=== PATIENT | female | born 1940 | race Hispanic/Latino ===

== ENCOUNTER 2021-10-21 18:53 | Inpatient (IN) | payer MEDICARE, MEDICAID ==
[2021-10-21 19:36] LABS: #Eosinphils 0.2 10x3/uL (0.0-0.5); #Monocytes 0.7 10x3/uL (0.0-1.1); #Neutrophils 3.5 10x3/uL (1.5-8.4); %Basophils 0.7 % (0.0-2.0); %Eosinophils 2.5 % (0.0-6.0); %Monocytes 11.3 % (0.0-10.0); %Neutrophils 57.9 % (40.0-75.0); Hemoglobin 4.9 g/dL (12.0-15.5); Mean Corpuscular HGB CONC 30.4 g/dL (32.0-36.0); Mean Corpuscular Hemoglobin 27.1 pg (27.0-33.0); Mean Platelet Volume 9.8 fl (7.4-10.4); Platelet Count 303 10x3/uL (150-450); RBC Distribution Width 14.2 % (11.5-14.5); Red Blood Cell (RBC) Count 1.81 10x6/uL (3.90-5.03); White Blood Cell (WBC) Count 6.1 10x3/uL (3.5-10.5)
[2021-10-21 19:50] LABS: ALT (SGPT) Less than 6 U/L (8-55); AST (SGOT) 7 U/L (5-34); Albumin 3.1 g/dL (3.4-4.8); Alkaline Phosphatase 117 U/L (40-110); Anion Gap 14 mmol/L (10-20); BUN (Urea Nitrogen) 21 mg/dL (9.8-20.1); Bilirubin, Total 0.2 mg/dL (0.2-1.2); Calc. Creatinine Clearance 0 mL/min (70-130); Calcium 7.9 mg/dL (7.8-10.44); Carbon Dioxide 25 mmol/L (23-31); Chloride 106 mmol/L (98-107); Globulin 2.8 g/dL (2.4-3.5); Glucose 146 mg/dL (83-110); Potassium 4.6 mmol/L (3.5-5.1); Protein, Total 5.9 g/dL (5.8-8.1); Sodium 140 mmol/L (136-145)
[2021-10-21] MEDS ORDERED: Fentanyl 100 MCG/2 ML VIAL ONE (20:05)
[2021-10-21 21:37] LABS: Bilirubin Neg (Negative); Blood, Urine 250 (Negative); Clarity Clear (Clear); Glucose, Urine (Dipstick) Normal (Negative); Ketone, Urine Negative (Negative); Leukocyte Negative (Negative); Nitrite Negative (Negative); Protein, Urine (Dipstick) 15 mg/dl (Neg-Trace); Urobilinogen Normal mg/dL (Less than 2)
[2021-10-21 22:02] LABS: Bacteria/HPF Rare-Few HPF (None Seen); RBC/HPF 21-50 HPF (0-3); Squamous Epithelial 0-3 HPF (0-3); WBC/HPF 0-3 HPF (0-3)
[2021-10-21 22:15] LABS: SARS-CoV-2 NAA Rapid Test Not Detected (NotDetected)
[2021-10-21] MEDS ORDERED: Ondansetron PF 4 MG/2 ML Vial IVP PRN (23:16)
[2021-10-21] MEDS ORDERED: traMADol HCl 50 MG TAB PO PRN (23:38)
[2021-10-21] MEDS ORDERED: Pantoprazole 80 MG in Sodium Chloride 0.9% 100 ML IVPB SCH (23:45)
[2021-10-21] MEDS ORDERED: Furosemide 40 MG/4 ML VIAL SLOW IVP SCH (23:45)
[2021-10-21 23:53] LABS: INR-International Normal Ratio 1.1; PTT 41.9 sec (22.0-33.0); Prothrombin Time 11.7 sec (9.5-12.1)
[2021-10-22] MEDS ORDERED: Pantoprazole 40 MG VIAL ONE (00:01)
[2021-10-22] MEDS ORDERED: Furosemide 40 MG/4 ML VIAL ONE (00:01)
[2021-10-22] MEDS: ALPRAZolam 1 MG TAB PO PRN (02:31)
[2021-10-22] MEDS: HYDROcodone/Acetaminophen 5/325 mg Tablet PO PRN ×4 (02:31→18:09)
[2021-10-22] MEDS: Labetalol HCl 100 MG/20 ML VIAL SLOW IVP PRN ×2 (02:32→16:27)
[2021-10-22] MEDS: Sodium Chloride 0.45% 1,000 ML IV SCH (03:49)
[2021-10-22 04:47] LABS: #Eosinphils 0.1 10x3/uL (0.0-0.5); #Monocytes 0.8 10x3/uL (0.0-1.1); #Neutrophils 3.9 10x3/uL (1.5-8.4); %Basophils 0.6 % (0.0-2.0); %Eosinophils 1.4 % (0.0-6.0); %Lymphocytes 20.4 % (18.0-47.0); %Monocytes 12.2 % (0.0-10.0); Hemoglobin 7.3 g/dL (12.0-15.5); Mean Corpuscular HGB CONC 32.3 g/dL (32.0-36.0); Mean Corpuscular Hemoglobin 27.8 pg (27.0-33.0); Mean Corpuscular Volume 85.9 fl (81.6-98.3); Platelet Count 306 10x3/uL (150-450); RBC Distribution Width 14.6 % (11.5-14.5); Red Blood Cell (RBC) Count 2.63 10x6/uL (3.90-5.03); White Blood Cell (WBC) Count 6.2 10x3/uL (3.5-10.5)
[2021-10-22 05:10] LABS: PTT 35.6 sec (22.0-33.0); Prothrombin Time 11.4 sec (9.5-12.1)
[2021-10-22 05:14] LABS: Anion Gap 13 mmol/L (10-20); BUN (Urea Nitrogen) 18 mg/dL (9.8-20.1); Calc. Creatinine Clearance 0 mL/min (70-130); Calcium 8.5 mg/dL (7.8-10.44); Carbon Dioxide 26 mmol/L (23-31); Chloride 106 mmol/L (98-107); Glucose 144 mg/dL (83-110); Sodium 141 mmol/L (136-145)
[2021-10-22 05:21] VITALS: BMI 39.9
[2021-10-22] MEDS ORDERED: Levothyroxine Sodium 100 MCG TAB PO SCH (06:00)
[2021-10-22] MEDS: Budesonide 0.25 MG/2 ML NEB INH SCH ×2 (07:44→19:00)
[2021-10-22] MEDS ORDERED: Carvedilol 6.25 MG TAB PO SCH (08:00)
[2021-10-22] MEDS: Furosemide 20 MG/2 ML VIAL SLOW IVP SCH (08:20)
[2021-10-22 08:50] LABS: #Eosinphils 0.1 10x3/uL (0.0-0.5); #Monocytes 0.9 10x3/uL (0.0-1.1); #Neutrophils 3.7 10x3/uL (1.5-8.4); %Basophils 0.6 % (0.0-2.0); %Monocytes 13.5 % (0.0-10.0); %Neutrophils 57.3 % (40.0-75.0); Mean Corpuscular HGB CONC 30.8 g/dL (32.0-36.0); Mean Corpuscular Hemoglobin 26.9 pg (27.0-33.0); Mean Corpuscular Volume 87.3 fl (81.6-98.3); Mean Platelet Volume 9.8 fl (7.4-10.4); Platelet Count 295 10x3/uL (150-450); RBC Distribution Width 14.8 % (11.5-14.5); White Blood Cell (WBC) Count 6.4 10x3/uL (3.5-10.5)
[2021-10-22] MEDS ORDERED: Pantoprazole 40 MG VIAL IVP SCH (09:00)
[2021-10-22] MEDS ORDERED: Brimonidine Tartrate 0.2% Ophth Soln 5 ml Bottle R EYE SCH (09:00)
[2021-10-22] MEDS: Acetaminophen 325 MG TAB PO PRN (10:16)
[2021-10-22] MEDS: Amlodipine 10 MG TAB PO SCH (12:22)
[2021-10-22] MEDS ORDERED: Amlodipine 10 MG TAB PO SCH (13:00)
[2021-10-22] MEDS ORDERED: Ketotifen Fumarate 0.025% Ophth Soln 5 ml Bottle EA EYE PRN (13:03)
[2021-10-22 13:49] LABS: #Eosinphils 0.2 10x3/uL (0.0-0.5); #Monocytes 0.7 10x3/uL (0.0-1.1); #Neutrophils 3.2 10x3/uL (1.5-8.4); %Basophils 0.5 % (0.0-2.0); %Eosinophils 2.7 % (0.0-6.0); %Lymphocytes 24.1 % (18.0-47.0); %Monocytes 12.4 % (0.0-10.0); %Neutrophils 58.7 % (40.0-75.0); Hemoglobin 6.8 g/dL (12.0-15.5); Mean Corpuscular HGB CONC 30.5 g/dL (32.0-36.0); Mean Corpuscular Hemoglobin 26.6 pg (27.0-33.0); Mean Corpuscular Volume 87.1 fl (81.6-98.3); Mean Platelet Volume 9.9 fl (7.4-10.4); Platelet Count 290 10x3/uL (150-450); RBC Distribution Width 14.6 % (11.5-14.5); Red Blood Cell (RBC) Count 2.56 10x6/uL (3.90-5.03); White Blood Cell (WBC) Count 5.5 10x3/uL (3.5-10.5)
[2021-10-22] MEDS ORDERED: SOMA 250 MG PO SCH (15:00)
[2021-10-22] MEDS ORDERED: Cyclobenzaprine 10 MG TAB PO SCH (15:00)
[2021-10-22] MEDS: Cyclobenzaprine 10 MG TAB PO SCH ×2 (15:10→21:30)
[2021-10-22] MEDS ORDERED: GoLYTELY 4,000 ml Bottle PO SCH (17:30)
[2021-10-22] MEDS: Carvedilol 25 MG TAB PO SCH (21:28)
[2021-10-22] MEDS: AMOXicillin 250 MG CAP PO SCH (21:29)
[2021-10-22] MEDS: Latanoprost 0.005% Ophth Soln 2.5 ml Bottle R EYE SCH (21:29)
[2021-10-22 22:23] LABS: #Eosinphils 0.2 10x3/uL (0.0-0.5); #Monocytes 0.8 10x3/uL (0.0-1.1); %Basophils 0.7 % (0.0-2.0); %Eosinophils 3.9 % (0.0-6.0); %Lymphocytes 29.3 % (18.0-47.0); %Monocytes 13.7 % (0.0-10.0); %Neutrophils 51.2 % (40.0-75.0); Hemoglobin 8.4 g/dL (12.0-15.5); Mean Corpuscular HGB CONC 32.2 g/dL (32.0-36.0); Mean Corpuscular Hemoglobin 27.8 pg (27.0-33.0); Mean Corpuscular Volume 86.4 fl (81.6-98.3); Mean Platelet Volume 9.3 fl (7.4-10.4); Platelet Count 302 10x3/uL (150-450); RBC Distribution Width 14.8 % (11.5-14.5); Red Blood Cell (RBC) Count 3.02 10x6/uL (3.90-5.03); White Blood Cell (WBC) Count 5.9 10x3/uL (3.5-10.5)
[2021-10-23] MEDS: Brimonidine Tartrate 0.2% Ophth Soln 5 ml Bottle R EYE SCH ×3 (00:09→20:20)
[2021-10-23] MEDS: HYDROcodone/Acetaminophen 5/325 mg Tablet PO PRN ×4 (00:09→20:22)
[2021-10-23] MEDS: ALPRAZolam 1 MG TAB PO PRN ×2 (00:09→13:37)
[2021-10-23 04:55] LABS: #Eosinphils 0.2 10x3/uL (0.0-0.5); #Monocytes 0.6 10x3/uL (0.0-1.1); #Neutrophils 2.5 10x3/uL (1.5-8.4); %Basophils 0.4 % (0.0-2.0); %Eosinophils 3.7 % (0.0-6.0); %Lymphocytes 30.3 % (18.0-47.0); %Monocytes 12.4 % (0.0-10.0); %Neutrophils 52.2 % (40.0-75.0); Hemoglobin 7.5 g/dL (12.0-15.5); Mean Corpuscular HGB CONC 31.5 g/dL (32.0-36.0); Mean Corpuscular Hemoglobin 27.6 pg (27.0-33.0); Mean Corpuscular Volume 87.5 fl (81.6-98.3); Mean Platelet Volume 9.5 fl (7.4-10.4); Platelet Count 292 10x3/uL (150-450); RBC Distribution Width 14.7 % (11.5-14.5); Red Blood Cell (RBC) Count 2.72 10x6/uL (3.90-5.03); White Blood Cell (WBC) Count 4.8 10x3/uL (3.5-10.5)
[2021-10-23 05:09] LABS: Anion Gap 15 mmol/L (10-20); BUN (Urea Nitrogen) 12 mg/dL (9.8-20.1); Calc. Creatinine Clearance 76 mL/min (70-130); Calcium 8.3 mg/dL (7.8-10.44); Carbon Dioxide 26 mmol/L (23-31); Chloride 104 mmol/L (98-107); Glucose 110 mg/dL (83-110); Potassium 3.9 mmol/L (3.5-5.1); Sodium 141 mmol/L (136-145)
[2021-10-23] MEDS: Levothyroxine Sodium 88 MCG TAB PO SCH (05:45)
[2021-10-23] MEDS ORDERED: Budesonide 0.5 MG/2 ML NEB ONE (07:19)
[2021-10-23] MEDS: Sodium Chloride 0.45% 1,000 ML IV SCH ×2 (08:18→08:19)
[2021-10-23] MEDS: Carvedilol 25 MG TAB PO SCH ×2 (09:56→20:22)
[2021-10-23] MEDS: Cyclobenzaprine 10 MG TAB PO SCH ×3 (09:56→20:24)
[2021-10-23] MEDS: AMOXicillin 250 MG CAP PO SCH ×2 (09:56→20:22)
[2021-10-23] MEDS: Amlodipine 10 MG TAB PO SCH (09:57)
[2021-10-23] MEDS ORDERED: GoLYTELY 4,000 ml Bottle PO SCH (10:00)
[2021-10-23] MEDS: Budesonide 0.25 MG/2 ML NEB INH SCH ×2 (10:56→19:14)
[2021-10-23] MEDS: Pantoprazole 40 MG VIAL IVP SCH (11:50)
[2021-10-23] MEDS: DULoxetine 30 MG CAP PO SCH (11:50)
[2021-10-23] MEDS: Furosemide 20 MG/2 ML VIAL SLOW IVP SCH (11:50)
[2021-10-23] MEDS: Latanoprost 0.005% Ophth Soln 2.5 ml Bottle R EYE SCH (20:21)
[2021-10-23] MEDS: Labetalol HCl 100 MG/20 ML VIAL SLOW IVP PRN (20:24)
[2021-10-24] MEDS: ALPRAZolam 1 MG TAB PO PRN ×2 (01:00→17:44)
[2021-10-24] MEDS: Acetaminophen 325 MG TAB PO PRN (01:43)
[2021-10-24] MEDS: Labetalol HCl 100 MG/20 ML VIAL SLOW IVP PRN ×3 (01:47→21:52)
[2021-10-24 04:07] LABS: Hemoglobin 7.8 g/dL (12.0-15.5); Mean Corpuscular Hemoglobin 27.4 pg (27.0-33.0); Mean Corpuscular Volume 85.6 fl (81.6-98.3); Mean Platelet Volume 9.5 fl (7.4-10.4); Platelet Count 280 10x3/uL (150-450); RBC Distribution Width 14.8 % (11.5-14.5); Red Blood Cell (RBC) Count 2.85 10x6/uL (3.90-5.03); White Blood Cell (WBC) Count 3.4 10x3/uL (3.5-10.5)
[2021-10-24 04:31] LABS: Anion Gap 13 mmol/L (10-20); BUN (Urea Nitrogen) 9 mg/dL (9.8-20.1); Calc. Creatinine Clearance 89 mL/min (70-130); Calcium 8.3 mg/dL (7.8-10.44); Carbon Dioxide 27 mmol/L (23-31); Chloride 105 mmol/L (98-107); Glucose 127 mg/dL (83-110); Potassium 3.5 mmol/L (3.5-5.1); Sodium 141 mmol/L (136-145)
[2021-10-24] MEDS: Levothyroxine Sodium 88 MCG TAB PO SCH (05:45)
[2021-10-24 05:47] LABS: MDiff Complete? YES
[2021-10-24 06:06] LABS: Eosinophils 5 % (0-10); Lymphocytes 20 % (21-51); Metamyelocyte 1 % (0-0); Monocytes 15 % (0-10); Neutrophil 58 % (42-75); Reactive Lymphocytes 1 % (0-10)
[2021-10-24 06:07] LABS: RBC Morphology Normal
[2021-10-24 06:08] LABS: Platelet Morphology Comment Appears Adequate
[2021-10-24] MEDS: HYDROcodone/Acetaminophen 5/325 mg Tablet PO PRN ×3 (06:17→23:35)
[2021-10-24] MEDS ORDERED: Budesonide 0.5 MG/2 ML NEB ONE (07:21)
[2021-10-24] MEDS: Pantoprazole 40 MG VIAL IVP SCH ×2 (08:20→12:07)
[2021-10-24] MEDS: Amlodipine 10 MG TAB PO SCH (08:20)
[2021-10-24] MEDS: DULoxetine 30 MG CAP PO SCH (08:20)
[2021-10-24] MEDS: Cyclobenzaprine 10 MG TAB PO SCH ×3 (08:21→21:32)
[2021-10-24] MEDS: Carvedilol 25 MG TAB PO SCH ×2 (08:21→21:31)
[2021-10-24] MEDS: AMOXicillin 250 MG CAP PO SCH ×2 (08:21→21:31)
[2021-10-24] MEDS: Brimonidine Tartrate 0.2% Ophth Soln 5 ml Bottle R EYE SCH ×2 (08:22→21:25)
[2021-10-24] MEDS: Furosemide 20 MG/2 ML VIAL SLOW IVP SCH ×2 (08:22→12:07)
[2021-10-24] MEDS: Budesonide 0.25 MG/2 ML NEB INH SCH ×2 (08:51→19:05)
[2021-10-24] MEDS ORDERED: PROPOFOL 40 ML ONE (14:08)
[2021-10-24] MEDS ORDERED: Midazolam HCl 2 mg/2 ml Vial ONE (14:08)
[2021-10-24] MEDS ORDERED: PROPOFOL 20 ML ONE (15:12)
[2021-10-24] MEDS ORDERED: Iron, Sodium Ferric Gluconate 125 MG, Admixture Fee 1 EACH in Sodium Chloride 0.9% 100 ML IVPB SCH (18:30)
[2021-10-24] MEDS: Latanoprost 0.005% Ophth Soln 2.5 ml Bottle R EYE SCH (21:26)
[2021-10-25] MEDS: HYDROcodone/Acetaminophen 5/325 mg Tablet PO PRN ×2 (06:09→11:59)
[2021-10-25] MEDS: Levothyroxine Sodium 88 MCG TAB PO SCH (06:09)
[2021-10-25] MEDS: Benzonatate 100 MG CAP PO PRN (06:17)
[2021-10-25] MEDS: Guaifenesin DM 100-10/5 ML UDCUP PO PRN (06:17)
[2021-10-25] MEDS ORDERED: Budesonide 0.5 MG/2 ML NEB ONE (06:38)
[2021-10-25 08:12] LABS: Hemoglobin 7.5 g/dL (12.0-15.5)
[2021-10-25] MEDS: Budesonide 0.25 MG/2 ML NEB INH SCH ×2 (08:21→18:51)
[2021-10-25] MEDS: AMOXicillin 250 MG CAP PO SCH ×2 (09:22→20:49)
[2021-10-25] MEDS: Amlodipine 10 MG TAB PO SCH (09:22)
[2021-10-25] MEDS: DULoxetine 30 MG CAP PO SCH (09:22)
[2021-10-25] MEDS: Pantoprazole 40 MG VIAL IVP SCH (09:22)
[2021-10-25] MEDS: Cyclobenzaprine 10 MG TAB PO SCH ×3 (09:22→20:48)
[2021-10-25] MEDS: Carvedilol 25 MG TAB PO SCH ×2 (09:23→20:48)
[2021-10-25] MEDS: Furosemide 20 MG/2 ML VIAL SLOW IVP SCH (09:23)
[2021-10-25] MEDS: Brimonidine Tartrate 0.2% Ophth Soln 5 ml Bottle R EYE SCH ×2 (09:25→20:59)
[2021-10-25] MEDS: Acetaminophen 325 MG TAB PO PRN (16:28)
[2021-10-25] MEDS: ALPRAZolam 1 MG TAB PO PRN (16:29)
[2021-10-25] MEDS: Latanoprost 0.005% Ophth Soln 2.5 ml Bottle R EYE SCH (20:58)
[2021-10-25] MEDS ORDERED: Diltiazem 125 MG in Sodium Chloride 0.9% 100 ML IVPB SCH (22:45)
[2021-10-26] MEDS: Guaifenesin DM 100-10/5 ML UDCUP PO PRN ×3 (01:27→21:04)
[2021-10-26] MEDS: HYDROcodone/Acetaminophen 10/325 mg Tablet PO PRN ×3 (01:53→21:10)
[2021-10-26] MEDS: ALPRAZolam 1 MG TAB PO PRN ×2 (03:19→21:26)
[2021-10-26 04:38] LABS: Anion Gap 14 mmol/L (10-20); BUN (Urea Nitrogen) 14 mg/dL (9.8-20.1); Calc. Creatinine Clearance 63 mL/min (70-130); Calcium 7.7 mg/dL (7.8-10.44); Carbon Dioxide 25 mmol/L (23-31); Chloride 99 mmol/L (98-107); Glucose 154 mg/dL (83-110); Potassium 3.5 mmol/L (3.5-5.1); Sodium 134 mmol/L (136-145)
[2021-10-26 04:43] LABS: Hemoglobin 7.7 g/dL (12.0-15.5); Mean Corpuscular HGB CONC 31.7 g/dL (32.0-36.0); Mean Corpuscular Hemoglobin 27.3 pg (27.0-33.0); Mean Corpuscular Volume 86.2 fl (81.6-98.3); Mean Platelet Volume 9.9 fl (7.4-10.4); Platelet Count 217 10x3/uL (150-450); Red Blood Cell (RBC) Count 2.82 10x6/uL (3.90-5.03); White Blood Cell (WBC) Count 2.2 10x3/uL (3.5-10.5)
[2021-10-26] MEDS ORDERED: Sodium Chloride 0.9% 500 ML IVPB SCH (04:45)
[2021-10-26] MEDS: Sodium Chloride 0.9% 1,000 ML IV SCH (04:50)
[2021-10-26 05:52] LABS: MDiff Complete? YES
[2021-10-26 05:57] LABS: Band 1 % (5-11); Eosinophils 5 % (0-10); Lymphocytes 38 % (21-51); Monocytes 23 % (0-10); Neutrophil 33 % (42-75)
[2021-10-26] MEDS: Budesonide 0.25 MG/2 ML NEB INH SCH ×2 (06:20→18:38)
[2021-10-26] MEDS ORDERED: Budesonide 0.5 MG/2 ML NEB ONE (06:22)
[2021-10-26 06:34] LABS: Hypochromia SLIGHT = 6-15 cells (100X) (0-5/hpf); Platelet Morphology Comment Appears Adequate
[2021-10-26] MEDS: Levothyroxine Sodium 88 MCG TAB PO SCH (06:37)
[2021-10-26] MEDS: Carvedilol 25 MG TAB PO SCH ×3 (07:29→20:55)
[2021-10-26] MEDS: Amlodipine 10 MG TAB PO SCH (07:29)
[2021-10-26] MEDS: Furosemide 20 MG/2 ML VIAL SLOW IVP SCH ×2 (07:29→17:34)
[2021-10-26] MEDS: DULoxetine 30 MG CAP PO SCH (07:36)
[2021-10-26] MEDS: Pantoprazole 40 MG VIAL IVP SCH (07:36)
[2021-10-26] MEDS: Cyclobenzaprine 10 MG TAB PO SCH ×3 (07:37→20:55)
[2021-10-26] MEDS: AMOXicillin 250 MG CAP PO SCH ×2 (07:38→20:56)
[2021-10-26] MEDS: Brimonidine Tartrate 0.2% Ophth Soln 5 ml Bottle R EYE SCH ×2 (07:44→21:19)
[2021-10-26] MEDS ORDERED: Digoxin 0.5 MG/2 ML AMP SLOW IVP SCH (08:00)
[2021-10-26 09:13] LABS: Bilirubin Neg (Negative); Blood, Urine 25 (Negative); Clarity Clear (Clear); Glucose, Urine (Dipstick) Normal (Negative); Ketone, Urine Negative (Negative); Leukocyte Negative (Negative); Nitrite Negative (Negative); Protein, Urine (Dipstick) 30 mg/dl (Neg-Trace); Urobilinogen Normal mg/dL (Less than 2)
[2021-10-26 09:43] LABS: Bacteria/HPF None Seen HPF (None Seen); RBC/HPF 0-3 HPF (0-3); Squamous Epithelial 0-3 HPF (0-3); WBC/HPF None Seen HPF (0-3)
[2021-10-26] MEDS ORDERED: Fleet Enema 133 ML BOT PR SCH (12:00)
[2021-10-26 12:06] LABS: Free T4 (Free Thyroxine) 1.03 ng/dL (0.70-1.48); Thyroid Stimulating Hormone 0.3595 uIU/mL (0.35-4.94)
[2021-10-26] MEDS: Digoxin 0.5 MG/2 ML AMP SLOW IVP SCH ×2 (14:58→20:56)
[2021-10-26] MEDS: Acetaminophen 325 MG TAB PO PRN (16:47)
[2021-10-26] MEDS: Benzonatate 100 MG CAP PO PRN ×2 (16:48→21:26)
[2021-10-26] MEDS: Latanoprost 0.005% Ophth Soln 2.5 ml Bottle R EYE SCH (21:18)
[2021-10-27] MEDS: Sodium Chloride 0.9% 1,000 ML IV SCH (04:48)
[2021-10-27 04:54] LABS: Hemoglobin 8.9 g/dL (12.0-15.5); Mean Corpuscular HGB CONC 31.6 g/dL (32.0-36.0); Mean Corpuscular Hemoglobin 27.6 pg (27.0-33.0); Mean Corpuscular Volume 87.3 fl (81.6-98.3); Mean Platelet Volume 10.4 fl (7.4-10.4); Platelet Count 184 10x3/uL (150-450); RBC Distribution Width 14.9 % (11.5-14.5); Red Blood Cell (RBC) Count 3.23 10x6/uL (3.90-5.03); White Blood Cell (WBC) Count 2.4 10x3/uL (3.5-10.5)
[2021-10-27 05:06] LABS: Anion Gap 12 mmol/L (10-20); BUN (Urea Nitrogen) 19 mg/dL (9.8-20.1); Calc. Creatinine Clearance 58 mL/min (70-130); Calcium 7.8 mg/dL (7.8-10.44); Carbon Dioxide 25 mmol/L (23-31); Chloride 102 mmol/L (98-107); Glucose 131 mg/dL (83-110); Iron 20 ug/dL (50-170); Potassium 3.9 mmol/L (3.5-5.1); Sodium 135 mmol/L (136-145)
[2021-10-27 05:34] LABS: MDiff Complete? YES
[2021-10-27 05:46] LABS: Band 4 % (5-11); Eosinophils 1 % (0-10); Lymphocytes 40 % (21-51); Monocytes 25 % (0-10); Neutrophil 29 % (42-75)
[2021-10-27 05:55] LABS: Platelet Morphology Comment Appears Adequate; RBC Morphology Normal
[2021-10-27] MEDS ORDERED: Budesonide 0.5 MG/2 ML NEB ONE (06:48)
[2021-10-27] MEDS: Pantoprazole 40 MG VIAL IVP SCH (07:13)
[2021-10-27] MEDS: AMOXicillin 250 MG CAP PO SCH (07:16)
[2021-10-27] MEDS: DULoxetine 30 MG CAP PO SCH (07:16)
[2021-10-27] MEDS: Digoxin 0.125 MG TAB PO SCH (07:17)
[2021-10-27] MEDS: Carvedilol 25 MG TAB PO SCH (07:17)
[2021-10-27] MEDS: Furosemide 20 MG/2 ML VIAL SLOW IVP SCH (07:18)
[2021-10-27] MEDS: Cyclobenzaprine 10 MG TAB PO SCH ×3 (07:18→23:17)
[2021-10-27] MEDS: Brimonidine Tartrate 0.2% Ophth Soln 5 ml Bottle R EYE SCH ×2 (07:18→20:16)
[2021-10-27] MEDS: HYDROcodone/Acetaminophen 10/325 mg Tablet PO PRN ×3 (07:18→16:25)
[2021-10-27] MEDS: Budesonide 0.25 MG/2 ML NEB INH SCH ×2 (08:25→19:01)
[2021-10-27] MEDS ORDERED: Digoxin 0.5 MG/2 ML AMP SLOW IVP SCH (09:00)
[2021-10-27] MEDS: Guaifenesin DM 100-10/5 ML UDCUP PO PRN ×2 (12:34→17:29)
[2021-10-27] MEDS ORDERED: Furosemide 20 MG/2 ML VIAL IVP SCH (17:00)
[2021-10-27] MEDS: ALPRAZolam 1 MG TAB PO PRN (18:35)
[2021-10-27] MEDS: Latanoprost 0.005% Ophth Soln 2.5 ml Bottle R EYE SCH (20:17)
[2021-10-28] MEDS: Sodium Chloride 0.9% 1,000 ML IV SCH (03:27)
[2021-10-28] MEDS ORDERED: Furosemide 40 MG/4 ML VIAL SLOW IVP SCH (03:30)
[2021-10-28] MEDS: Carvedilol 25 MG TAB PO SCH ×3 (03:37→21:03)
[2021-10-28 04:48] LABS: Hemoglobin 8.8 g/dL (12.0-15.5); Mean Corpuscular HGB CONC 31.2 g/dL (32.0-36.0); Mean Corpuscular Hemoglobin 27.5 pg (27.0-33.0); Mean Corpuscular Volume 88.1 fl (81.6-98.3); Platelet Count 181 10x3/uL (150-450); RBC Distribution Width 15.2 % (11.5-14.5); White Blood Cell (WBC) Count 3.5 10x3/uL (3.5-10.5)
[2021-10-28 04:59] LABS: Anion Gap 14 mmol/L (10-20); BUN (Urea Nitrogen) 24 mg/dL (9.8-20.1); Calc. Creatinine Clearance 54 mL/min (70-130); Calcium 8.1 mg/dL (7.8-10.44); Carbon Dioxide 25 mmol/L (23-31); Chloride 101 mmol/L (98-107); Glucose 118 mg/dL (83-110); Potassium 3.6 mmol/L (3.5-5.1); Sodium 136 mmol/L (136-145)
[2021-10-28 06:19] LABS: MDiff Complete? YES; Platelet Morphology Comment Appears Adequate
[2021-10-28 06:20] LABS: Hypochromia SLIGHT = 6-15 cells (100X) (0-5/hpf)
[2021-10-28 06:23] LABS: Band 3 % (5-11); Eosinophils 1 % (0-10); Lymphocytes 31 % (21-51); Monocytes 23 % (0-10); Neutrophil 42 % (42-75)
[2021-10-28] MEDS: Levothyroxine Sodium 88 MCG TAB PO SCH (07:48)
[2021-10-28] MEDS: Pantoprazole 40 MG VIAL IVP SCH (08:38)
[2021-10-28] MEDS: Digoxin 0.125 MG TAB PO SCH (08:39)
[2021-10-28] MEDS: AMOXicillin 250 MG CAP PO SCH ×2 (08:39→21:02)
[2021-10-28] MEDS: Cyclobenzaprine 10 MG TAB PO SCH ×2 (08:39→21:03)
[2021-10-28] MEDS: DULoxetine 30 MG CAP PO SCH (08:40)
[2021-10-28] MEDS: Brimonidine Tartrate 0.2% Ophth Soln 5 ml Bottle R EYE SCH ×2 (08:43→21:00)
[2021-10-28] MEDS: Budesonide 0.25 MG/2 ML NEB INH SCH ×2 (11:05→20:10)
[2021-10-28] MEDS: Acetaminophen 325 MG TAB PO PRN (13:25)
[2021-10-28] MEDS: Guaifenesin DM 100-10/5 ML UDCUP PO PRN (13:27)
[2021-10-28] MEDS ORDERED: Iron, Sodium Ferric Gluconate 250 MG, Admixture Fee 1 EACH in Sodium Chloride 0.9% 250 ... IVPB SCH (15:00)
[2021-10-28] MEDS: HYDROcodone/Acetaminophen 10/325 mg Tablet PO PRN ×2 (16:52→21:03)
[2021-10-28 19:45] LABS: Creatinine, Urine 128.91 mg/dL (47-110)
[2021-10-28] MEDS: Latanoprost 0.005% Ophth Soln 2.5 ml Bottle R EYE SCH (21:00)
[2021-10-29] MEDS: Levothyroxine Sodium 88 MCG TAB PO SCH (05:03)
[2021-10-29] MEDS: HYDROcodone/Acetaminophen 10/325 mg Tablet PO PRN ×3 (05:03→20:52)
[2021-10-29] MEDS: ALPRAZolam 0.5 MG TAB PO PRN ×2 (05:03→20:52)
[2021-10-29 05:37] LABS: ALT (SGPT) 10 U/L (8-55); AST (SGOT) 25 U/L (5-34); Albumin 2.6 g/dL (3.4-4.8); Alkaline Phosphatase 81 U/L (40-110); Anion Gap 16 mmol/L (10-20); BUN (Urea Nitrogen) 31 mg/dL (9.8-20.1); Bilirubin, Total 0.2 mg/dL (0.2-1.2); Calc. Creatinine Clearance 56 mL/min (70-130); Carbon Dioxide 20 mmol/L (23-31); Chloride 103 mmol/L (98-107); Globulin 3.4 g/dL (2.4-3.5); Glucose 109 mg/dL (83-110); Magnesium 1.6 mg/dL (1.6-2.6); Phosphorus 4.1 mg/dL (2.3-4.7); Potassium 4.1 mmol/L (3.5-5.1); Sodium 135 mmol/L (136-145)
[2021-10-29 08:17] LABS: Hemoglobin 8.2 g/dL (12.0-15.5); Mean Corpuscular HGB CONC 30.8 g/dL (32.0-36.0); Mean Corpuscular Hemoglobin 27.9 pg (27.0-33.0); Mean Corpuscular Volume 90.5 fl (81.6-98.3); Mean Platelet Volume 10.7 fl (7.4-10.4); Platelet Count 163 10x3/uL (150-450); RBC Distribution Width 15.4 % (11.5-14.5); Red Blood Cell (RBC) Count 2.94 10x6/uL (3.90-5.03); White Blood Cell (WBC) Count 3.2 10x3/uL (3.5-10.5)
[2021-10-29 08:37] LABS: Eosinophils 5 % (0-10); Hypochromia SLIGHT = 6-15 cells (100X) (0-5/hpf); Lymphocytes 41 % (21-51); MDiff Complete? YES; Monocytes 18 % (0-10); Myelocyte 1 % (0-0); Neutrophil 34 % (42-75); Polychromasia SLIGHT = 2-3 cells (100X) (0-2/hpf); Reactive Lymphocytes 1 % (0-10)
[2021-10-29 08:39] LABS: Platelet Morphology Comment Appears Adequate
[2021-10-29] MEDS: AMOXicillin 250 MG CAP PO SCH ×2 (09:28→20:35)
[2021-10-29] MEDS: Carvedilol 25 MG TAB PO SCH ×2 (09:28→20:36)
[2021-10-29] MEDS: Cyclobenzaprine 10 MG TAB PO SCH ×2 (09:29→20:35)
[2021-10-29] MEDS: Digoxin 0.125 MG TAB PO SCH (09:30)
[2021-10-29] MEDS: DULoxetine 30 MG CAP PO SCH (09:33)
[2021-10-29] MEDS: Furosemide 40 MG/4 ML VIAL SLOW IVP SCH (09:34)
[2021-10-29] MEDS: Brimonidine Tartrate 0.2% Ophth Soln 5 ml Bottle R EYE SCH ×2 (09:41→20:47)
[2021-10-29] MEDS: Polyethylene Glycol 3350 17 GM Packet PO SCH (09:43)
[2021-10-29] MEDS: Budesonide 0.25 MG/2 ML NEB INH SCH ×2 (11:49→19:20)
[2021-10-29 15:38] LABS: SARS-CoV-2 PCR by NAA Not Detected (NotDetected)
[2021-10-29] MEDS ORDERED: Guaifenesin DM 100-10/5 ML UDCUP PO SCH (20:00)
[2021-10-29] MEDS: Latanoprost 0.005% Ophth Soln 2.5 ml Bottle R EYE SCH (20:38)
[2021-10-29] MEDS: Benzonatate 100 MG CAP PO PRN (21:02)
[2021-10-30 04:53] LABS: Hemoglobin 8.8 g/dL (12.0-15.5); Mean Corpuscular HGB CONC 31.4 g/dL (32.0-36.0); Mean Corpuscular Hemoglobin 27.8 pg (27.0-33.0); Mean Corpuscular Volume 88.3 fl (81.6-98.3); Mean Platelet Volume 10.8 fl (7.4-10.4); Platelet Count 160 10x3/uL (150-450); RBC Distribution Width 15.3 % (11.5-14.5); Red Blood Cell (RBC) Count 3.17 10x6/uL (3.90-5.03); White Blood Cell (WBC) Count 3.3 10x3/uL (3.5-10.5)
[2021-10-30 05:09] LABS: MDiff Complete? YES; Manual Diff?? YES
[2021-10-30 05:11] LABS: ALT (SGPT) 13 U/L (8-55); AST (SGOT) 22 U/L (5-34); Albumin 2.8 g/dL (3.4-4.8); Alkaline Phosphatase 87 U/L (40-110); Anion Gap 15 mmol/L (10-20); BUN (Urea Nitrogen) 31 mg/dL (9.8-20.1); Bilirubin, Total 0.3 mg/dL (0.2-1.2); Calc. Creatinine Clearance 62 mL/min (70-130); Calcium 8.3 mg/dL (7.8-10.44); Carbon Dioxide 24 mmol/L (23-31); Chloride 100 mmol/L (98-107); Globulin 3.4 g/dL (2.4-3.5); Glucose 108 mg/dL (83-110); Potassium 3.9 mmol/L (3.5-5.1); Protein, Total 6.2 g/dL (5.8-8.1); Sodium 135 mmol/L (136-145)
[2021-10-30 05:17] LABS: Band 4 % (5-11); Eosinophils 1 % (0-10); Lymphocytes 28 % (21-51); Monocytes 12 % (0-10); Neutrophil 47 % (42-75); Nucleated RBC 1 % (0); Reactive Lymphocytes 5 % (0-10)
[2021-10-30 05:18] LABS: Platelet Morphology Comment Appears Adequate
[2021-10-30 05:19] LABS: Anisocytosis SLIGHT = 6-15 cells (100X) (0-5/hpf); Basophilic Stippling SLIGHT = 1-2 cells (100X) (None Seen); Hypochromia SLIGHT = 6-15 cells (100X) (0-5/hpf); Macrocytosis SLIGHT = 6-15 cells (100X) (0-5/hpf); Microcytosis SLIGHT = 6-15 cells (100X) (0-5/hpf); Polychromasia SLIGHT = 2-3 cells (100X) (0-2/hpf)
[2021-10-30] MEDS: Levothyroxine Sodium 88 MCG TAB PO SCH (06:44)
[2021-10-30] MEDS ORDERED: Budesonide 0.5 MG/2 ML NEB ONE (07:01)
[2021-10-30] MEDS: Budesonide 0.25 MG/2 ML NEB INH SCH ×2 (08:10→19:46)
[2021-10-30] MEDS: DULoxetine 30 MG CAP PO SCH (11:14)
[2021-10-30] MEDS: Carvedilol 25 MG TAB PO SCH ×2 (11:15→21:00)
[2021-10-30] MEDS: AMOXicillin 250 MG CAP PO SCH ×2 (11:16→21:00)
[2021-10-30] MEDS: Brimonidine Tartrate 0.2% Ophth Soln 5 ml Bottle R EYE SCH ×2 (11:16→21:00)
[2021-10-30] MEDS: Digoxin 0.125 MG TAB PO SCH (11:16)
[2021-10-30] MEDS: Cyclobenzaprine 10 MG TAB PO SCH ×2 (11:16→21:00)
[2021-10-30] MEDS: Polyethylene Glycol 3350 17 GM Packet PO SCH (11:17)
[2021-10-30] MEDS: Furosemide 40 MG/4 ML VIAL SLOW IVP SCH (11:17)
[2021-10-30] MEDS: HYDROcodone/Acetaminophen 10/325 mg Tablet PO PRN ×2 (11:45→17:10)
[2021-10-30] MEDS: Benzonatate 100 MG CAP PO PRN ×2 (11:46→17:07)
[2021-10-30] MEDS: Labetalol HCl 100 MG/20 ML VIAL SLOW IVP PRN (11:46)
[2021-10-30] MEDS: guaiFENesin ER 600 MG TAB PO PRN (20:59)
[2021-10-30] MEDS: Latanoprost 0.005% Ophth Soln 2.5 ml Bottle R EYE SCH (21:03)
[2021-10-31] MEDS: HYDROcodone/Acetaminophen 10/325 mg Tablet PO PRN (04:21)
[2021-10-31 05:04] LABS: ALT (SGPT) 18 U/L (8-55); AST (SGOT) 30 U/L (5-34); Albumin 2.9 g/dL (3.4-4.8); Alkaline Phosphatase 89 U/L (40-110); Anion Gap 16 mmol/L (10-20); BUN (Urea Nitrogen) 27 mg/dL (9.8-20.1); Bilirubin, Total 0.3 mg/dL (0.2-1.2); Calc. Creatinine Clearance 71 mL/min (70-130); Calcium 8.6 mg/dL (7.8-10.44); Carbon Dioxide 23 mmol/L (23-31); Chloride 104 mmol/L (98-107); Globulin 3.8 g/dL (2.4-3.5); Glucose 127 mg/dL (83-110); Potassium 4.2 mmol/L (3.5-5.1); Protein, Total 6.7 g/dL (5.8-8.1); Sodium 139 mmol/L (136-145)
[2021-10-31] MEDS: Levothyroxine Sodium 88 MCG TAB PO SCH (06:05)
[2021-10-31] MEDS: Carvedilol 25 MG TAB PO SCH ×2 (06:05→20:04)
[2021-10-31] MEDS: AMOXicillin 250 MG CAP PO SCH ×2 (06:05→20:03)
[2021-10-31 06:34] LABS: #Eosinphils 0.1 10x3/uL (0.0-0.5); #Monocytes 0.4 10x3/uL (0.0-1.1); #Neutrophils 0.4 10x3/uL (1.5-8.4); %Basophils 2.2 % (0.0-2.0); %Eosinophils 3.4 % (0.0-6.0); %Lymphocytes 42.7 % (18.0-47.0); %Monocytes 23.6 % (0.0-10.0); %Neutrophils 23.6 % (40.0-75.0); Hemoglobin 9.5 g/dL (12.0-15.5); Mean Corpuscular HGB CONC 31.4 g/dL (32.0-36.0); Mean Corpuscular Volume 89.4 fl (81.6-98.3); Mean Platelet Volume 10.6 fl (7.4-10.4); Platelet Count 165 10x3/uL (150-450); RBC Distribution Width 15.5 % (11.5-14.5); Red Blood Cell (RBC) Count 3.39 10x6/uL (3.90-5.03); White Blood Cell (WBC) Count 1.8 10x3/uL (3.5-10.5)
[2021-10-31] MEDS ORDERED: Budesonide 0.5 MG/2 ML NEB ONE (06:59)
[2021-10-31 07:01] LABS: Band 6 % (5-11); Eosinophils 5 % (0-10); Lymphocytes 31 % (21-51); Metamyelocyte 2 % (0-0); Monocytes 21 % (0-10); Neutrophil 29 % (42-75); Reactive Lymphocytes 6 % (0-10)
[2021-10-31 07:04] LABS: Anisocytosis SLIGHT = 6-15 cells (100X) (0-5/hpf); Elliptocytes SLIGHT = 2-5 cells (100X) (0-1/hpf); Hypochromia SLIGHT = 6-15 cells (100X) (0-5/hpf); Macrocytosis SLIGHT = 6-15 cells (100X) (0-5/hpf); Microcytosis SLIGHT = 6-15 cells (100X) (0-5/hpf); Platelet Morphology Comment Appears Adequate
[2021-10-31] MEDS: Budesonide 0.25 MG/2 ML NEB INH SCH ×2 (07:32→19:55)
[2021-10-31] MEDS: Cyclobenzaprine 10 MG TAB PO SCH ×2 (12:18→20:03)
[2021-10-31] MEDS: Furosemide 40 MG/4 ML VIAL SLOW IVP SCH (12:19)
[2021-10-31] MEDS: guaiFENesin ER 600 MG TAB PO PRN (12:19)
[2021-10-31] MEDS: Digoxin 0.125 MG TAB PO SCH (12:19)
[2021-10-31] MEDS: Polyethylene Glycol 3350 17 GM Packet PO SCH (12:19)
[2021-10-31] MEDS: DULoxetine 30 MG CAP PO SCH (12:19)
[2021-10-31] MEDS ORDERED: Aluminum & Magnesium Hydroxide 60 ML, diphenhydrAMINE 150 MG, Lidocaine 2% Viscous Solu... SSW PRN (12:56)
[2021-10-31] MEDS: HYDROcodone/Acetaminophen 5/325 mg Tablet PO PRN ×2 (12:59→20:02)
[2021-10-31] MEDS: Brimonidine Tartrate 0.2% Ophth Soln 5 ml Bottle R EYE SCH (13:00)
[2021-10-31 14:39] LABS: Band 4 % (5-11); Eosinophils 1 % (0-10); Hemoglobin 9.4 g/dL (12.0-15.5); Lymphocytes 38 % (21-51); MDiff Complete? YES; Mean Corpuscular HGB CONC 30.9 g/dL (32.0-36.0); Mean Corpuscular Hemoglobin 27.9 pg (27.0-33.0); Mean Corpuscular Volume 90.2 fl (81.6-98.3); Metamyelocyte 1 % (0-0); Monocytes 29 % (0-10); Myelocyte 1 % (0-0); Neutrophil 22 % (42-75); Platelet Count 178 10x3/uL (150-450); Platelet Morphology Comment Appears Adequate; RBC Distribution Width 15.5 % (11.5-14.5); RBC Morphology Normal; Reactive Lymphocytes 2 % (0-10); Red Blood Cell (RBC) Count 3.37 10x6/uL (3.90-5.03); White Blood Cell (WBC) Count 1.5 10x3/uL (3.5-10.5)
[2021-10-31] MEDS: Latanoprost 0.005% Ophth Soln 2.5 ml Bottle R EYE SCH (20:05)
[2021-10-31] MEDS: ALPRAZolam 0.5 MG TAB PO PRN (20:30)
[2021-11-01] MEDS: Brimonidine Tartrate 0.2% Ophth Soln 5 ml Bottle R EYE SCH ×3 (00:34→21:37)
[2021-11-01] MEDS: Acetaminophen 325 MG TAB PO PRN (00:44)
[2021-11-01 02:16] LABS: Bilirubin Neg (Negative); Blood, Urine 250 (Negative); Clarity Slightly Cloudy (Clear); Glucose, Urine (Dipstick) Normal (Negative); Ketone, Urine Negative (Negative); Leukocyte 500 (Negative); Nitrite Positive (Negative); Protein, Urine (Dipstick) 30 mg/dl (Neg-Trace); Urobilinogen Normal mg/dL (Less than 2)
[2021-11-01 02:31] LABS: Bacteria/HPF 1+ HPF (None Seen); Squamous Epithelial None Seen HPF (0-3)
[2021-11-01 02:33] LABS: Legionella Urinary Ag Negative (Negative); Strep pneumo Urine Ag NEGATIVE (NEGATIVE)
[2021-11-01 06:31] LABS: Hemoglobin 9.7 g/dL (12.0-15.5); Mean Corpuscular HGB CONC 30.9 g/dL (32.0-36.0); Mean Corpuscular Hemoglobin 27.8 pg (27.0-33.0); Mean Platelet Volume 10.6 fl (7.4-10.4); Platelet Count 182 10x3/uL (150-450); RBC Distribution Width 15.8 % (11.5-14.5); Red Blood Cell (RBC) Count 3.49 10x6/uL (3.90-5.03); White Blood Cell (WBC) Count 1.8 10x3/uL (3.5-10.5)
[2021-11-01 06:36] LABS: MDiff Complete? YES; Manual Diff?? YES
[2021-11-01] MEDS: Levothyroxine Sodium 88 MCG TAB PO SCH (06:44)
[2021-11-01] MEDS: Benzonatate 100 MG CAP PO PRN ×3 (06:44→21:17)
[2021-11-01 06:50] LABS: ALT (SGPT) 17 U/L (8-55); AST (SGOT) 20 U/L (5-34); Albumin 2.9 g/dL (3.4-4.8); Alkaline Phosphatase 97 U/L (40-110); Anion Gap 16 mmol/L (10-20); BUN (Urea Nitrogen) 21 mg/dL (9.8-20.1); Bilirubin, Total 0.4 mg/dL (0.2-1.2); Calc. Creatinine Clearance 75 mL/min (70-130); Calcium 8.7 mg/dL (7.8-10.44); Carbon Dioxide 26 mmol/L (23-31); Chloride 103 mmol/L (98-107); Globulin 3.7 g/dL (2.4-3.5); Glucose 116 mg/dL (83-110); Potassium 3.6 mmol/L (3.5-5.1); Protein, Total 6.6 g/dL (5.8-8.1); Sodium 141 mmol/L (136-145)
[2021-11-01 06:54] LABS: Band 2 % (5-11); Eosinophils 5 % (0-10); Lymphocytes 46 % (21-51); Metamyelocyte 1 % (0-0); Monocytes 20 % (0-10); Myelocyte 1 % (0-0); Neutrophil 18 % (42-75); Reactive Lymphocytes 5 % (0-10)
[2021-11-01 07:06] LABS: Anisocytosis SLIGHT = 6-15 cells (100X) (0-5/hpf); Elliptocytes SLIGHT = 2-5 cells (100X) (0-1/hpf); Hypochromia SLIGHT = 6-15 cells (100X) (0-5/hpf); Macrocytosis SLIGHT = 6-15 cells (100X) (0-5/hpf); Microcytosis SLIGHT = 6-15 cells (100X) (0-5/hpf); Platelet Morphology Comment Appears Adequate; Polychromasia SLIGHT = 2-3 cells (100X) (0-2/hpf)
[2021-11-01] MEDS: AMOXicillin 250 MG CAP PO SCH (07:38)
[2021-11-01] MEDS: DULoxetine 30 MG CAP PO SCH (07:38)
[2021-11-01] MEDS: Cyclobenzaprine 10 MG TAB PO SCH ×2 (07:38→21:17)
[2021-11-01] MEDS: Carvedilol 25 MG TAB PO SCH ×2 (07:39→21:19)
[2021-11-01] MEDS: Digoxin 0.125 MG TAB PO SCH (07:39)
[2021-11-01] MEDS: Polyethylene Glycol 3350 17 GM Packet PO SCH (07:40)
[2021-11-01] MEDS: Furosemide 40 MG/4 ML VIAL SLOW IVP SCH (07:41)
[2021-11-01] MEDS: cefTRIAXone\\ROCEPHIN 1 GM in Sodium Chloride 0.9% 100 ML IVPB SCH (08:55)
[2021-11-01] MEDS ORDERED: Budesonide 0.5 MG/2 ML NEB ONE (09:02)
[2021-11-01] MEDS: Budesonide 0.25 MG/2 ML NEB INH SCH ×2 (10:13→18:31)
[2021-11-01] MEDS: ALPRAZolam 0.5 MG TAB PO PRN ×2 (10:52→21:17)
[2021-11-01] MEDS: HYDROcodone/Acetaminophen 5/325 mg Tablet PO PRN ×3 (10:52→21:17)
[2021-11-01] MEDS: guaiFENesin ER 600 MG TAB PO PRN (12:14)
[2021-11-01] MEDS ORDERED: Loratadine 10 MG TAB PO PRN (15:59)
[2021-11-01] MEDS ORDERED: Artificial Tear Sol 15 ML BOT EA EYE PRN (15:59)
[2021-11-01] MEDS ORDERED: Hydrocerin (Eucerin) Cream 120 gm Jar TOP PRN (15:59)
[2021-11-01] MEDS ORDERED: Sodium Chloride 0.65% Nasal 44 ML BOT EA NARE PRN (15:59)
[2021-11-01] MEDS: Latanoprost 0.005% Ophth Soln 2.5 ml Bottle R EYE SCH (21:20)
[2021-11-02 05:37] LABS: Hemoglobin 9.5 g/dL (12.0-15.5); Mean Corpuscular HGB CONC 31.4 g/dL (32.0-36.0); Mean Corpuscular Hemoglobin 27.8 pg (27.0-33.0); Mean Corpuscular Volume 88.6 fl (81.6-98.3); Mean Platelet Volume 10.6 fl (7.4-10.4); Platelet Count 191 10x3/uL (150-450); RBC Distribution Width 15.7 % (11.5-14.5); Red Blood Cell (RBC) Count 3.42 10x6/uL (3.90-5.03); White Blood Cell (WBC) Count 1.7 10x3/uL (3.5-10.5)
[2021-11-02 05:46] LABS: ALT (SGPT) 14 U/L (8-55); AST (SGOT) 17 U/L (5-34); Albumin 2.8 g/dL (3.4-4.8); Alkaline Phosphatase 88 U/L (40-110); Anion Gap 19 mmol/L (10-20); BUN (Urea Nitrogen) 18 mg/dL (9.8-20.1); Bilirubin, Total 0.3 mg/dL (0.2-1.2); Calc. Creatinine Clearance 84 mL/min (70-130); Calcium 8.6 mg/dL (7.8-10.44); Carbon Dioxide 25 mmol/L (23-31); Chloride 103 mmol/L (98-107); Globulin 3.7 g/dL (2.4-3.5); Glucose 100 mg/dL (83-110); Potassium 3.7 mmol/L (3.5-5.1); Protein, Total 6.5 g/dL (5.8-8.1); Sodium 143 mmol/L (136-145)
[2021-11-02] MEDS: Levothyroxine Sodium 88 MCG TAB PO SCH (06:22)
[2021-11-02 06:34] LABS: MDiff Complete? YES
[2021-11-02 06:43] LABS: Band 4 % (5-11); Eosinophils 6 % (0-10); Lymphocytes 42 % (21-51); Metamyelocyte 3 % (0-0); Monocytes 26 % (0-10); Myelocyte 1 % (0-0); Neutrophil 14 % (42-75); Reactive Lymphocytes 4 % (0-10)
[2021-11-02 06:44] LABS: Anisocytosis SLIGHT = 6-15 cells (100X) (0-5/hpf); Platelet Morphology Comment Appears Adequate
[2021-11-02] MEDS: Polyethylene Glycol 3350 17 GM Packet PO SCH (07:15)
[2021-11-02] MEDS ORDERED: Budesonide 0.5 MG/2 ML NEB ONE (07:16)
[2021-11-02] MEDS: Cyclobenzaprine 10 MG TAB PO SCH ×2 (07:17→20:50)
[2021-11-02] MEDS: DULoxetine 30 MG CAP PO SCH (07:17)
[2021-11-02] MEDS: Furosemide 40 MG/4 ML VIAL SLOW IVP SCH (07:17)
[2021-11-02] MEDS: guaiFENesin ER 600 MG TAB PO PRN (07:18)
[2021-11-02] MEDS: Benzonatate 100 MG CAP PO PRN ×3 (07:19→20:51)
[2021-11-02] MEDS: HYDROcodone/Acetaminophen 5/325 mg Tablet PO PRN ×3 (07:19→20:51)
[2021-11-02] MEDS: Carvedilol 25 MG TAB PO SCH ×2 (07:19→20:52)
[2021-11-02] MEDS: Cepastat Lozenges 1 LOZ PO PRN (07:19)
[2021-11-02] MEDS: Digoxin 0.125 MG TAB PO SCH (07:20)
[2021-11-02] MEDS: cefTRIAXone\\ROCEPHIN 1 GM in Sodium Chloride 0.9% 100 ML IVPB SCH (07:55)
[2021-11-02] MEDS: Brimonidine Tartrate 0.2% Ophth Soln 5 ml Bottle R EYE SCH ×2 (07:56→20:52)
[2021-11-02] MEDS: Budesonide 0.25 MG/2 ML NEB INH SCH ×2 (08:09→19:22)
[2021-11-02] MEDS: Cefepime 2 GM in Sodium Chloride 0.9% 100 ML IVPB SCH (17:53)
[2021-11-02] MEDS: ALPRAZolam 0.5 MG TAB PO PRN (20:50)
[2021-11-02] MEDS: Latanoprost 0.005% Ophth Soln 2.5 ml Bottle R EYE SCH (20:53)
[2021-11-03] MEDS: HYDROcodone/Acetaminophen 5/325 mg Tablet PO PRN ×3 (00:59→15:59)
[2021-11-03] MEDS: Benzonatate 100 MG CAP PO PRN ×3 (00:59→08:27)
[2021-11-03] MEDS: guaiFENesin ER 600 MG TAB PO PRN ×2 (04:04→16:00)
[2021-11-03] MEDS: Cefepime 2 GM in Sodium Chloride 0.9% 100 ML IVPB SCH (05:41)
[2021-11-03] MEDS: Levothyroxine Sodium 88 MCG TAB PO SCH (05:42)
[2021-11-03] MEDS: DULoxetine 30 MG CAP PO SCH (08:27)
[2021-11-03] MEDS: Cyclobenzaprine 10 MG TAB PO SCH ×2 (08:27→21:16)
[2021-11-03] MEDS: Digoxin 0.125 MG TAB PO SCH (08:27)
[2021-11-03] MEDS: Carvedilol 25 MG TAB PO SCH ×2 (08:28→21:21)
[2021-11-03] MEDS: Furosemide 40 MG/4 ML VIAL SLOW IVP SCH (08:30)
[2021-11-03] MEDS: Polyethylene Glycol 3350 17 GM Packet PO SCH (08:30)
[2021-11-03] MEDS: Brimonidine Tartrate 0.2% Ophth Soln 5 ml Bottle R EYE SCH (08:31)
[2021-11-03] MEDS: Budesonide 0.25 MG/2 ML NEB INH SCH ×2 (08:40→18:44)
[2021-11-03 08:44] LABS: Mean Corpuscular HGB CONC 31.5 g/dL (32.0-36.0); Mean Corpuscular Hemoglobin 28.2 pg (27.0-33.0); Mean Corpuscular Volume 89.3 fl (81.6-98.3); Mean Platelet Volume 10.2 fl (7.4-10.4); Platelet Count 241 10x3/uL (150-450); RBC Distribution Width 15.7 % (11.5-14.5); Red Blood Cell (RBC) Count 3.55 10x6/uL (3.90-5.03); White Blood Cell (WBC) Count 1.9 10x3/uL (3.5-10.5)
[2021-11-03 09:20] LABS: Band 2 % (5-11); Eosinophils 5 % (0-10); Lymphocytes 47 % (21-51); Metamyelocyte 1 % (0-0); Monocytes 23 % (0-10)
[2021-11-03 09:21] LABS: MDiff Complete? YES; Neutrophil 22 % (42-75)
[2021-11-03 09:22] LABS: Platelet Morphology Comment Appears Adequate
[2021-11-03 09:23] LABS: ALT (SGPT) 10 U/L (8-55); AST (SGOT) 10 U/L (5-34); Alkaline Phosphatase 85 U/L (40-110); Anion Gap 13 mmol/L (10-20); BUN (Urea Nitrogen) 14 mg/dL (9.8-20.1); Bilirubin, Total 0.3 mg/dL (0.2-1.2); Calc. Creatinine Clearance 97 mL/min (70-130); Calcium 8.5 mg/dL (7.8-10.44); Carbon Dioxide 28 mmol/L (23-31); Chloride 104 mmol/L (98-107); Glucose 127 mg/dL (83-110); Potassium 3.5 mmol/L (3.5-5.1); Sodium 141 mmol/L (136-145)
[2021-11-03 09:24] LABS: Hypochromia SLIGHT = 6-15 cells (100X) (0-5/hpf); Polychromasia SLIGHT = 2-3 cells (100X) (0-2/hpf)
[2021-11-03] MEDS: Cepastat Lozenges 1 LOZ PO PRN (14:51)
[2021-11-04 04:58] LABS: ALT (SGPT) 8 U/L (8-55); AST (SGOT) 8 U/L (5-34); Albumin 2.7 g/dL (3.4-4.8); Alkaline Phosphatase 80 U/L (40-110); Anion Gap 15 mmol/L (10-20); BUN (Urea Nitrogen) 13 mg/dL (9.8-20.1); Bilirubin, Total 0.3 mg/dL (0.2-1.2); Calc. Creatinine Clearance 98 mL/min (70-130); Calcium 8.4 mg/dL (7.8-10.44); Carbon Dioxide 28 mmol/L (23-31); Chloride 103 mmol/L (98-107); Globulin 3.7 g/dL (2.4-3.5); Glucose 114 mg/dL (83-110); Potassium 3.4 mmol/L (3.5-5.1); Protein, Total 6.4 g/dL (5.8-8.1); Sodium 143 mmol/L (136-145)
[2021-11-04 05:20] LABS: Hemoglobin 9.1 g/dL (12.0-15.5); Mean Corpuscular HGB CONC 31.2 g/dL (32.0-36.0); Mean Corpuscular Hemoglobin 27.6 pg (27.0-33.0); Mean Corpuscular Volume 88.5 fl (81.6-98.3); Mean Platelet Volume 10.5 fl (7.4-10.4); Platelet Count 260 10x3/uL (150-450); RBC Distribution Width 15.6 % (11.5-14.5); White Blood Cell (WBC) Count 2.1 10x3/uL (3.5-10.5)
[2021-11-04 05:49] LABS: MDiff Complete? YES
[2021-11-04 05:52] LABS: Hypochromia SLIGHT = 6-15 cells (100X) (0-5/hpf); Platelet Morphology Comment Appears Adequate
[2021-11-04 05:58] LABS: Eosinophils 7 % (0-10); Lymphocytes 37 % (21-51); Monocytes 29 % (0-10); Neutrophil 27 % (42-75)
[2021-11-04] MEDS: Budesonide 0.25 MG/2 ML NEB INH SCH ×2 (07:00→19:00)
[2021-11-04] MEDS: Brimonidine Tartrate 0.2% Ophth Soln 5 ml Bottle R EYE SCH ×3 (09:34→21:33)
[2021-11-04] MEDS: Polyethylene Glycol 3350 17 GM Packet PO SCH (09:35)
[2021-11-04] MEDS: Digoxin 0.125 MG TAB PO SCH (09:36)
[2021-11-04] MEDS: DULoxetine 30 MG CAP PO SCH (09:36)
[2021-11-04] MEDS: Cyclobenzaprine 10 MG TAB PO SCH ×2 (09:36→21:32)
[2021-11-04] MEDS: Carvedilol 25 MG TAB PO SCH ×2 (09:37→21:32)
[2021-11-04] MEDS: Furosemide 40 MG/4 ML VIAL SLOW IVP SCH (09:37)
[2021-11-04] MEDS: HYDROcodone/Acetaminophen 5/325 mg Tablet PO PRN ×3 (09:43→23:19)
[2021-11-04] MEDS ORDERED: cefTRIAXone\\ROCEPHIN 1 GM in Sodium Chloride 0.9% 100 ML IVPB SCH (12:00)
[2021-11-04] MEDS: Latanoprost 0.005% Ophth Soln 2.5 ml Bottle R EYE SCH ×2 (13:54→21:34)
[2021-11-04] MEDS: Cefepime 2 GM in Sodium Chloride 0.9% 100 ML IVPB SCH (13:55)
[2021-11-04] MEDS: Levothyroxine Sodium 88 MCG TAB PO SCH (13:57)
[2021-11-04] MEDS ORDERED: Cefdinir 300 MG CAP PO SCH (17:15)
[2021-11-04] MEDS: Benzonatate 100 MG CAP PO PRN (18:16)
[2021-11-04] MEDS: ALPRAZolam 0.5 MG TAB PO PRN (23:02)
[2021-11-05 05:25] LABS: Hemoglobin 9.3 g/dL (12.0-15.5); Mean Corpuscular HGB CONC 31.3 g/dL (32.0-36.0); Mean Corpuscular Hemoglobin 27.7 pg (27.0-33.0); Mean Corpuscular Volume 88.4 fl (81.6-98.3); Mean Platelet Volume 10.5 fl (7.4-10.4); Platelet Count 298 10x3/uL (150-450); RBC Distribution Width 15.5 % (11.5-14.5); Red Blood Cell (RBC) Count 3.36 10x6/uL (3.90-5.03); White Blood Cell (WBC) Count 2.6 10x3/uL (3.5-10.5)
[2021-11-05 05:40] LABS: ALT (SGPT) 8 U/L (8-55); AST (SGOT) 9 U/L (5-34); Albumin 2.8 g/dL (3.4-4.8); Alkaline Phosphatase 79 U/L (40-110); Anion Gap 14 mmol/L (10-20); BUN (Urea Nitrogen) 12 mg/dL (9.8-20.1); Bilirubin, Total 0.4 mg/dL (0.2-1.2); Calc. Creatinine Clearance 90 mL/min (70-130); Calcium 8.4 mg/dL (7.8-10.44); Carbon Dioxide 29 mmol/L (23-31); Chloride 103 mmol/L (98-107); Globulin 3.6 g/dL (2.4-3.5); Glucose 108 mg/dL (83-110); Potassium 3.3 mmol/L (3.5-5.1); Protein, Total 6.4 g/dL (5.8-8.1); Sodium 143 mmol/L (136-145)
[2021-11-05 06:17] LABS: MDiff Complete? YES; Platelet Morphology Comment Appears Adequate; RBC Morphology Normal
[2021-11-05 06:22] LABS: Band 4 % (5-11); Eosinophils 5 % (0-10); Lymphocytes 35 % (21-51); Monocytes 23 % (0-10); Neutrophil 31 % (42-75); Reactive Lymphocytes 1 % (0-10)
[2021-11-05] MEDS: Levothyroxine Sodium 88 MCG TAB PO SCH (06:36)
[2021-11-05 08:35] LABS: Magnesium 1.4 mg/dL (1.6-2.6)
[2021-11-05] MEDS: Potassium Chloride 20 MEQ TAB PO SCH ×2 (09:16→17:09)
[2021-11-05] MEDS: Polyethylene Glycol 3350 17 GM Packet PO SCH (09:16)
[2021-11-05] MEDS: Digoxin 0.125 MG TAB PO SCH (09:16)
[2021-11-05] MEDS: DULoxetine 30 MG CAP PO SCH (09:16)
[2021-11-05] MEDS: HYDROcodone/Acetaminophen 5/325 mg Tablet PO PRN ×2 (09:17→18:04)
[2021-11-05] MEDS: Carvedilol 25 MG TAB PO SCH ×2 (09:17→21:44)
[2021-11-05] MEDS: Cyclobenzaprine 10 MG TAB PO SCH ×2 (09:17→21:44)
[2021-11-05] MEDS: ALPRAZolam 0.5 MG TAB PO PRN ×2 (09:18→18:30)
[2021-11-05] MEDS: Furosemide 40 MG/4 ML VIAL SLOW IVP SCH (09:33)
[2021-11-05] MEDS: Brimonidine Tartrate 0.2% Ophth Soln 5 ml Bottle R EYE SCH ×2 (09:33→21:44)
[2021-11-05] MEDS: Cefdinir 300 MG CAP PO SCH (09:42)
[2021-11-05] MEDS: Budesonide 0.25 MG/2 ML NEB INH SCH ×2 (10:17→19:04)
[2021-11-05] MEDS ORDERED: Fluticasone Propionate Nasal Spray 16 gm Bottle NASAL SCH (12:00)
[2021-11-05] MEDS ORDERED: Magnesium 2 GM/50 ML 2 GM in Premix Bag 1 BAG IVPB SCH (12:00)
[2021-11-05] MEDS: Benzonatate 100 MG CAP PO PRN (13:31)
[2021-11-05] MEDS: Acetaminophen 325 MG TAB PO PRN (17:09)
[2021-11-05] MEDS: Cepastat Lozenges 1 LOZ PO PRN (17:10)
[2021-11-05 19:39] LABS: SARS-CoV-2 PCR by NAA Not Detected (NotDetected)
[2021-11-05] MEDS: Latanoprost 0.005% Ophth Soln 2.5 ml Bottle R EYE SCH (21:45)
[2021-11-06 04:27] LABS: Anion Gap 14 mmol/L (10-20); BUN (Urea Nitrogen) 13 mg/dL (9.8-20.1); Calc. Creatinine Clearance 86 mL/min (70-130); Calcium 8.4 mg/dL (7.8-10.44); Carbon Dioxide 28 mmol/L (23-31); Chloride 103 mmol/L (98-107); Glucose 114 mg/dL (83-110); Magnesium 1.9 mg/dL (1.6-2.6); Potassium 3.6 mmol/L (3.5-5.1); Sodium 141 mmol/L (136-145)
[2021-11-06] MEDS: Levothyroxine Sodium 88 MCG TAB PO SCH (06:20)
[2021-11-06] MEDS ORDERED: Budesonide 0.5 MG/2 ML NEB ONE (07:21)
[2021-11-06] MEDS: Budesonide 0.25 MG/2 ML NEB INH SCH ×2 (07:57→19:04)
[2021-11-06] MEDS: Potassium Chloride 20 MEQ TAB PO SCH ×2 (09:00→19:20)
[2021-11-06] MEDS: Brimonidine Tartrate 0.2% Ophth Soln 5 ml Bottle R EYE SCH ×2 (09:00→20:54)
[2021-11-06] MEDS: Cyclobenzaprine 10 MG TAB PO SCH ×2 (09:10→21:53)
[2021-11-06] MEDS: Furosemide 40 MG TAB PO SCH (09:12)
[2021-11-06] MEDS: DULoxetine 30 MG CAP PO SCH (09:13)
[2021-11-06] MEDS: Digoxin 0.125 MG TAB PO SCH (09:15)
[2021-11-06] MEDS: Carvedilol 25 MG TAB PO SCH ×2 (09:16→20:42)
[2021-11-06] MEDS: Polyethylene Glycol 3350 17 GM Packet PO SCH (09:18)
[2021-11-06] MEDS: Fluticasone Propionate Nasal Spray 16 gm Bottle NASAL SCH (09:19)
[2021-11-06] MEDS: HYDROcodone/Acetaminophen 5/325 mg Tablet PO PRN ×2 (09:24→20:44)
[2021-11-06] MEDS: ALPRAZolam 0.5 MG TAB PO PRN (09:26)
[2021-11-06] MEDS: Cefdinir 300 MG CAP PO SCH (10:52)
[2021-11-06] MEDS ORDERED: Rivaroxaban 10 MG TAB PO SCH (18:30)
[2021-11-06] MEDS: Latanoprost 0.005% Ophth Soln 2.5 ml Bottle R EYE SCH (20:51)
[2021-11-06] MEDS: Cepastat Lozenges 1 LOZ PO PRN (21:03)
[2021-11-07] MEDS: Levothyroxine Sodium 88 MCG TAB PO SCH (06:25)
[2021-11-07] MEDS: Budesonide 0.25 MG/2 ML NEB INH SCH ×2 (07:54→19:04)
[2021-11-07] MEDS: Fluticasone Propionate Nasal Spray 16 gm Bottle NASAL SCH (08:51)
[2021-11-07] MEDS: Polyethylene Glycol 3350 17 GM Packet PO SCH (08:51)
[2021-11-07] MEDS: Carvedilol 25 MG TAB PO SCH ×2 (08:52→20:24)
[2021-11-07] MEDS: DULoxetine 30 MG CAP PO SCH (08:52)
[2021-11-07] MEDS: Digoxin 0.125 MG TAB PO SCH (08:52)
[2021-11-07] MEDS: Cefdinir 300 MG CAP PO SCH (08:52)
[2021-11-07] MEDS: Furosemide 40 MG TAB PO SCH (08:53)
[2021-11-07] MEDS: Potassium Chloride 20 MEQ TAB PO SCH ×2 (08:53→16:51)
[2021-11-07] MEDS: Cyclobenzaprine 10 MG TAB PO SCH ×2 (08:53→20:22)
[2021-11-07] MEDS: Brimonidine Tartrate 0.2% Ophth Soln 5 ml Bottle R EYE SCH ×2 (08:54→20:37)
[2021-11-07] MEDS ORDERED: Rivaroxaban 10 MG TAB PO SCH ×2 (09:00→21:00)
[2021-11-07] MEDS: Benzonatate 100 MG CAP PO PRN (13:36)
[2021-11-07] MEDS: ALPRAZolam 0.5 MG TAB PO PRN ×2 (13:36→20:24)
[2021-11-07] MEDS ORDERED: ALPRAZolam 0.5 MG TAB PO PRN (14:47)
[2021-11-07 18:44] LABS: #Eosinphils 0.1 10x3/uL (0.0-0.5); #Monocytes 0.7 10x3/uL (0.0-1.1); #Neutrophils 2.1 10x3/uL (1.5-8.4); %Basophils 0.9 % (0.0-2.0); %Eosinophils 3.3 % (0.0-6.0); %Lymphocytes 24.5 % (18.0-47.0); %Monocytes 17.5 % (0.0-10.0); %Neutrophils 48.8 % (40.0-75.0); Hemoglobin 10.4 g/dL (12.0-15.5); Mean Corpuscular Hemoglobin 27.2 pg (27.0-33.0); Mean Corpuscular Volume 87.7 fl (81.6-98.3); Mean Platelet Volume 10.9 fl (7.4-10.4); Platelet Count 283 10x3/uL (150-450); RBC Distribution Width 15.7 % (11.5-14.5); Red Blood Cell (RBC) Count 3.83 10x6/uL (3.90-5.03); White Blood Cell (WBC) Count 4.2 10x3/uL (3.5-10.5)
[2021-11-07 18:55] LABS: Lactic Acid 1.5 mmol/L (0.5-2.2)
[2021-11-07 19:10] LABS: Anion Gap 20 mmol/L (10-20); BUN (Urea Nitrogen) 15 mg/dL (9.8-20.1); Calc. Creatinine Clearance 79 mL/min (70-130); Carbon Dioxide 18 mmol/L (23-31); Chloride 111 mmol/L (98-107); Glucose 135 mg/dL (83-110); Potassium 5.6 mmol/L (3.5-5.1); Sodium 143 mmol/L (136-145)
[2021-11-07 19:14] LABS: Anisocytosis SLIGHT = 6-15 cells (100X) (0-5/hpf); Eosinophils 2 % (0-10); Hypochromia SLIGHT = 6-15 cells (100X) (0-5/hpf); Lymphocytes 27 % (21-51); Monocytes 15 % (0-10); Platelet Morphology Comment Appears Adequate
[2021-11-07] MEDS: HYDROcodone/Acetaminophen 5/325 mg Tablet PO PRN (20:23)
[2021-11-07] MEDS: Cepastat Lozenges 1 LOZ PO PRN (20:24)
[2021-11-07] MEDS: Latanoprost 0.005% Ophth Soln 2.5 ml Bottle R EYE SCH (20:29)
[2021-11-07] MEDS: guaiFENesin ER 600 MG TAB PO PRN (20:45)
[2021-11-08] MEDS: Levothyroxine Sodium 88 MCG TAB PO SCH (05:33)
[2021-11-08] MEDS ORDERED: Budesonide 0.5 MG/2 ML NEB ONE (07:38)
[2021-11-08] MEDS: Budesonide 0.25 MG/2 ML NEB INH SCH ×2 (08:09→19:57)
[2021-11-08] MEDS: Carvedilol 25 MG TAB PO SCH ×2 (08:54→20:59)
[2021-11-08] MEDS: Cefdinir 300 MG CAP PO SCH (08:54)
[2021-11-08] MEDS: Digoxin 0.125 MG TAB PO SCH (08:54)
[2021-11-08] MEDS: DULoxetine 30 MG CAP PO SCH (08:54)
[2021-11-08] MEDS: Furosemide 40 MG TAB PO SCH (08:55)
[2021-11-08] MEDS: Cyclobenzaprine 10 MG TAB PO SCH ×2 (08:55→20:57)
[2021-11-08 08:58] LABS: #Basophils 0.1 10x3/uL (0.0-0.2); #Eosinphils 0.1 10x3/uL (0.0-0.5); #Monocytes 0.6 10x3/uL (0.0-1.1); %Basophils 1.2 % (0.0-2.0); %Lymphocytes 28.7 % (18.0-47.0); %Monocytes 14.1 % (0.0-10.0); Hemoglobin 10.1 g/dL (12.0-15.5); Mean Corpuscular HGB CONC 30.1 g/dL (32.0-36.0); Mean Corpuscular Hemoglobin 27.4 pg (27.0-33.0); Mean Corpuscular Volume 90.8 fl (81.6-98.3); Mean Platelet Volume 10.2 fl (7.4-10.4); Platelet Count 321 10x3/uL (150-450); RBC Distribution Width 15.8 % (11.5-14.5); Red Blood Cell (RBC) Count 3.69 10x6/uL (3.90-5.03)
[2021-11-08 09:02] LABS: Anion Gap 13 mmol/L (10-20); BUN (Urea Nitrogen) 13 mg/dL (9.8-20.1); Calc. Creatinine Clearance 97 mL/min (70-130); Calcium 8.9 mg/dL (7.8-10.44); Carbon Dioxide 28 mmol/L (23-31); Chloride 106 mmol/L (98-107); Glucose 113 mg/dL (83-110); Potassium 5.1 mmol/L (3.5-5.1); Sodium 142 mmol/L (136-145)
[2021-11-08] MEDS: Brimonidine Tartrate 0.2% Ophth Soln 5 ml Bottle R EYE SCH ×2 (09:03→22:23)
[2021-11-08] MEDS: Fluticasone Propionate Nasal Spray 16 gm Bottle NASAL SCH (09:04)
[2021-11-08] MEDS: Polyethylene Glycol 3350 17 GM Packet PO SCH (09:04)
[2021-11-08] MEDS: HYDROcodone/Acetaminophen 5/325 mg Tablet PO PRN ×2 (12:02→21:05)
[2021-11-08 13:59] LABS: #Eosinphils 0.1 10x3/uL (0.0-0.5); #Monocytes 0.5 10x3/uL (0.0-1.1); #Neutrophils 1.9 10x3/uL (1.5-8.4); %Basophils 1.1 % (0.0-2.0); %Eosinophils 2.8 % (0.0-6.0); %Lymphocytes 24.9 % (18.0-47.0); %Monocytes 14.6 % (0.0-10.0); %Neutrophils 54.4 % (40.0-75.0); Hemoglobin 10.1 g/dL (12.0-15.5); Mean Corpuscular HGB CONC 30.3 g/dL (32.0-36.0); Mean Corpuscular Hemoglobin 27.4 pg (27.0-33.0); Mean Corpuscular Volume 90.2 fl (81.6-98.3); Mean Platelet Volume 10.4 fl (7.4-10.4); Platelet Count 322 10x3/uL (150-450); RBC Distribution Width 15.9 % (11.5-14.5); Red Blood Cell (RBC) Count 3.69 10x6/uL (3.90-5.03); White Blood Cell (WBC) Count 3.6 10x3/uL (3.5-10.5)
[2021-11-08] MEDS: Tranexamic Acid 650 MG TAB PO SCH ×2 (15:18→21:04)
[2021-11-08 16:35] LABS: PTT 37.6 sec (22.0-33.0); Prothrombin Time 11.4 sec (9.5-12.1)
[2021-11-08] MEDS: guaiFENesin ER 600 MG TAB PO PRN (21:04)
[2021-11-08] MEDS: Benzonatate 100 MG CAP PO PRN (21:05)
[2021-11-08] MEDS: Cepastat Lozenges 1 LOZ PO PRN (21:05)
[2021-11-08] MEDS: Latanoprost 0.005% Ophth Soln 2.5 ml Bottle R EYE SCH (22:23)
[2021-11-09] MEDS: Levothyroxine Sodium 88 MCG TAB PO SCH (06:17)
[2021-11-09] MEDS ORDERED: Budesonide 0.5 MG/2 ML NEB ONE (07:25)
[2021-11-09] MEDS: Budesonide 0.25 MG/2 ML NEB INH SCH ×2 (08:09→18:58)
[2021-11-09 09:05] LABS: Hemoglobin 9.4 g/dL (12.0-15.5); Mean Corpuscular HGB CONC 30.1 g/dL (32.0-36.0); Mean Corpuscular Hemoglobin 27.2 pg (27.0-33.0); Mean Corpuscular Volume 90.4 fl (81.6-98.3); Platelet Count 284 10x3/uL (150-450); RBC Distribution Width 15.7 % (11.5-14.5); Red Blood Cell (RBC) Count 3.45 10x6/uL (3.90-5.03); White Blood Cell (WBC) Count 4.6 10x3/uL (3.5-10.5)
[2021-11-09 09:06] LABS: MDiff Complete? YES
[2021-11-09 09:13] LABS: Band 2 % (5-11); Eosinophils 3 % (0-10); Lymphocytes 28 % (21-51); Monocytes 11 % (0-10); Neutrophil 54 % (42-75); Reactive Lymphocytes 2 % (0-10)
[2021-11-09 09:15] LABS: Polychromasia SLIGHT = 2-3 cells (100X) (0-2/hpf)
[2021-11-09 09:16] LABS: Basophilic Stippling SLIGHT = 1-2 cells (100X) (None Seen); Platelet Morphology Comment Appears Adequate
[2021-11-09 09:18] LABS: #Eosinphils 0.1 10x3/uL (0.0-0.5); #Monocytes 0.8 10x3/uL (0.0-1.1); #Neutrophils 2.2 10x3/uL (1.5-8.4); %Basophils 0.9 % (0.0-2.0); %Eosinophils 2.8 % (0.0-6.0); %Lymphocytes 29.8 % (18.0-47.0); %Neutrophils 47.3 % (40.0-75.0)
[2021-11-09] MEDS: Carvedilol 25 MG TAB PO SCH (10:13)
[2021-11-09] MEDS: Cyclobenzaprine 10 MG TAB PO SCH (10:13)
[2021-11-09] MEDS: DULoxetine 30 MG CAP PO SCH (10:13)
[2021-11-09] MEDS: Furosemide 40 MG TAB PO SCH (10:14)
[2021-11-09] MEDS: Fluticasone Propionate Nasal Spray 16 gm Bottle NASAL SCH (10:14)
[2021-11-09] MEDS: Cefdinir 300 MG CAP PO SCH (10:14)
[2021-11-09] MEDS: Digoxin 0.125 MG TAB PO SCH (10:14)
[2021-11-09] MEDS: Polyethylene Glycol 3350 17 GM Packet PO SCH (10:15)
[2021-11-09] MEDS: Tranexamic Acid 650 MG TAB PO SCH ×2 (10:16→18:52)
[2021-11-09] MEDS: HYDROcodone/Acetaminophen 5/325 mg Tablet PO PRN ×2 (10:48→17:59)
[2021-11-09] MEDS: guaiFENesin ER 600 MG TAB PO PRN ×2 (10:49→18:50)
[2021-11-09 22:44] VITALS: TEMP 97.5
[2021-11-09 22:45] VITALS: BP 142/68
== END 2021-11-09 19:36 | disposition home or self-care (01) | DRG 394 ==
LOC: CSHERS 18:53 → CSHTELE 23:16 → OBSVTOIN 23:16 → UNDOADMOB 10-22 01:54 → CSHTELE 10-22 01:54
PROVIDERS: ADMIT Student in an Organized Health Care Education/Training Program; ATTEND Internal Medicine
PROC: 30233N1 Transfusion of Nonautologous Red Blood Cells into Peripheral Vein, Percutaneous Approach (ICD-10-PCS; 2021-10-21)
PROC: 0DJ08ZZ Inspection of Upper Intestinal Tract, Via Natural or Artificial Opening Endoscopic (ICD-10-PCS; principal; 2021-10-24)
PROC: 0DBN8ZZ Excision of Sigmoid Colon, Via Natural or Artificial Opening Endoscopic (ICD-10-PCS; 2021-10-24)
PROC: 0W3P8ZZ Control Bleeding in Gastrointestinal Tract, Via Natural or Artificial Opening Endoscopic (ICD-10-PCS; 2021-10-24)
PROC: 5A09357 Assistance with Respiratory Ventilation, Less than 24 Consecutive Hours, Continuous Positive Airway Pressure (ICD-10-PCS; 2021-10-28)
DX: K64.8 Other hemorrhoids (principal); I13.0 Hypertensive heart and chronic kidney disease with heart failure and stage 1 through stage 4 chronic kidney disease, or unspecified chronic kidney disease; D62 Acute posthemorrhagic anemia; I50.22 Chronic systolic (congestive) heart failure; J96.11 Chronic respiratory failure with hypoxia; N39.0 Urinary tract infection, site not specified; I82.509 Chronic embolism and thrombosis of unspecified deep veins of unspecified lower extremity; I27.82 Chronic pulmonary embolism; E78.5 Hyperlipidemia, unspecified; E03.9 Hypothyroidism, unspecified; I48.0 Paroxysmal atrial fibrillation; N18.30 Chronic kidney disease, stage 3 unspecified; G47.33 Obstructive sleep apnea (adult) (pediatric); M19.90 Unspecified osteoarthritis, unspecified site; E11.22 Type 2 diabetes mellitus with diabetic chronic kidney disease; D70.8 Other neutropenia; B37.9 Candidiasis, unspecified; E87.6 Hypokalemia; E83.42 Hypomagnesemia; Z66 Do not resuscitate; E66.01 Morbid (severe) obesity due to excess calories; B96.20 Unspecified Escherichia coli [E. coli] as the cause of diseases classified elsewhere; Z96.641 Presence of right artificial hip joint; Z20.822 Contact with and (suspected) exposure to COVID-19; G89.29 Other chronic pain; Z90.49 Acquired absence of other specified parts of digestive tract; Z90.710 Acquired absence of both cervix and uterus; Z68.39 Body mass index [BMI] 39.0-39.9, adult; Z88.5 Allergy status to narcotic agent; Z88.8 Allergy status to other drugs, medicaments and biological substances; Z79.899 Other long term (current) drug therapy; Z79.51 Long term (current) use of inhaled steroids; Z79.01 Long term (current) use of anticoagulants
CPT/HCPCS: 36415; 36416; 36430; 71045; 74176; 80048; 80053; 81001; 81003; 81015; 82570; 82607; 82746; 83540; 83605; 83735; 83880; 84100; 84145; 84156; 84439; 84443; 84484; 85014; 85018; 85025; 85046; 85060; 85610; 85730; 86850; 86900; 86901; 87040; 87077; 87086; 87186; 87449; 87899; 88305; 93005; 93010; 93306; 93970; 94640; 94660; 94760; 96374; 96375; C9113; J0692; J0696; J1160; J1940; J2250; J2405; J2704; J2916; J3010; J3475; J3490; J7030; J7050; J7620; J7626; P9016; U0002; U0003; U0005